=== PATIENT | female | born 1985 | race Caucasian/White ===

== ENCOUNTER 2017-11-18 18:09 | Emergency (ER) | payer OTHER ==
[~2017-11-18] VITALS: Ht 175.3 cm; Wt 80.7 kg
[~2017-11-18 18:09] MED LIST: ACET325T9 PO; AZIT250T PO; CETI10TA22 PO; CYCL-331 PO; DEXT15CA37 PO; EPIN0.3A4 IJ; IBUP400T18 PO; NAPR500T4 PO; SUMA4PEN SQ; [UNRECOGNIZED DRUG - CODE] PO
--- NOTE | 2017-11-18 18:13 | ED.ADGEN ---
Past History Past Medical History: Migraines, Ovarian Cyst Past Surgical History: Other Alcohol Use: None Drug Use: None Adult General Chief Complaint Chief Complaint "... I been getting sick since Monday but today I really started around fever... I feel like I got a flu". HPI HPI Patient is a 32 year old female who presents with above hx and complaints of fever, chills, myalgia, arthralgia, malaise and pharyngitis. Patient normally follows at [facility]. Patient is active duty . No history of travel overseas recently. No specific ill contacts. No history of bad food. No history immunosuppression. Patient up-to-date with vaccinations. Patient normally healthy. Review of Systems Review of Systems Constitutional: History of fever or chills [] Eyes: Denies change in visual acuity, redness, or eye pain [] HENT: Denies nasal congestion or sore throat [] Respiratory: Denies cough or shortness of breath [] Cardiovascular: No additional information not addressed in HPI [] GI: History of abdominal pain, nausea, patient denies vomiting, bloody stools or diarrhea [] : Denies dysuria or hematuria [] Musculoskeletal: Denies back pain or joint pain []complaints of myalgia and arthralgia Integument: Denies rash or skin lesions [] Neurologic: Denies headache, focal weakness or sensory changes [] Endocrine: Denies polyuria or polydipsia [] All other systems were reviewed and found to be within normal limits, except as documented in this note. Family History Family History Noncontributory Current Medications Current Medications Current Medications Medications (Trade) Dose Ordered Sig/[facility] Start Time Stop Time Status Last Admin Dose Admin Ibuprofen (Motrin) 800 mg STK-MED ONCE 11/18/17 19:01 11/18/17 19:02 DC Ondansetron HCl (Zofran Odt) 8 mg 1X ONCE 11/18/17 20:00 11/18/17 20:00 DC 11/18/17 19:48 8 MG Allergies Allergies Allergies Coded Allergies Type Severity Reaction Last Updated Verified egg Allergy Severe Anaphylaxis 07/30/16 Yes metronidazole Allergy Intermediate Swelling 07/30/16 Yes Physical Exam Physical Exam Constitutional: Well developed, well nourished, in acute distress, non-toxic appearance. [] HENT: Normocephalic, atraumatic, bilateral external ears normal, oropharynx moist, dry mucosa mouth, injected pharynx, no oral exudates, nose swollen turbinates and rhinorrhea. Eyes: PERRLA, EOMI, conjunctiva normal, no discharge. [] Neck: Normal range of motion, no tenderness, supple, no stridor. Adenopathy Rt cervical chain. Cardiovascular: Tachycardia Heart rate regular rhythm, no murmur [] Lungs & Thorax: Bilateral breath sounds equal apex with few scattered wheezes on auscultation [] Abdomen: Bowel sounds are hyperactive,, soft, mild generalized tenderness, no masses, no pulsatile masses. [] Skin: Warm, dry, no erythema, no rash. [] Back: No tenderness, no CVA tenderness. [] Extremities: Generalized muscle tenderness, no cyanosis, no clubbing, ROM intact , no edema. [] Neurologic: Alert and oriented X 3, normal motor function, normal sensory function, no focal deficits noted. [] Psychologic: Affect anxious, judgement normal, mood normal. [] Current Patient Data Vital Signs Vital Signs Date Time Temp Pulse Resp B/P (MAP) Pulse Ox O2 Delivery O2 Flow Rate FiO2 11/18/17 19:48 100.6 Lab Results Laboratory Tests Test 11/18/17 18:15 Influenza Type A (Rapid) Negative (NEGATIVE) Influenza Type B (Rapid) Positive (NEGATIVE) EKG EKG [] Radiology/Procedures Radiology/Procedures [] Course & Med Decision Making Course & Med Decision Making Pertinent Labs and Imaging studies reviewed. (See chart for details). Patient to push fluids. Take Zofran as needed for nausea and vomiting. Take Tylenol and ibuprofen for pain. Take Benadryl 50 mg up 4 times a day may be helpful. Give one take: 1-2 tablets 4 times a day for marked discomfort. Follow-up primary care. Avoid work if running temperature. [] Final Impression Final Impression 1. Influenza B[] 2. Viral syndrome Problems: Dragon Disclaimer Dragon Disclaimer This electronic medical record was generated, in whole or in part, using a voice recognition dictation system. LEORA RAVI MD Nov 18, 2017 18:13
[2017-11-18 18:20] VITALS: BP 114/70
[2017-11-18 18:59] LABS: INFLUENZA A PATIENT NEGATIVE (NEGATIVE); INFLUENZA B PATIENT POSITIVE (NEGATIVE)
[2017-11-18] MEDS ORDERED: IBUPROFEN 800 MG TABLET. PO ONE ×2 (19:01→19:15)
[2017-11-18] MEDS ORDERED: HYDR-79 PO (19:35)
[2017-11-18] MEDS ORDERED: ONDA8TAB12 PO (19:35)
[2017-11-18] MEDS ORDERED: ONDANSETRON ODT 4 MG TAB.RAPDIS ONE (19:46)
[2017-11-18] MEDS ORDERED: ONDANSETRON ODT 4 MG TAB.RAPDIS PO ONE (20:00)
== END 2017-11-18 19:48 | disposition home or self-care (01) ==
LOC: ER 18:09
DX: J10.1 Influenza due to other identified influenza virus with other respiratory manifestations (principal); B34.9 Viral infection, unspecified; G43.909 Migraine, unspecified, not intractable, without status migrainosus; Z88.8 Allergy status to other drugs, medicaments and biological substances; Z91.012 Allergy to eggs
CPT/HCPCS: 87070; 87804; 87880; 99284; Q0162